=== PATIENT | male | born 1960 | race Caucasian/White ===

== ENCOUNTER 2023-07-03 16:36 | Inpatient (IN) | payer OTHER, SELFPAY ==
[2023-07-03 17:05] VITALS: BP 116/90; PULSE 88; RESP 18; TEMP 36.2; O2SAT 94
[2023-07-03 17:39] VITALS: BMI 28.0
[2023-07-03] MEDS: CILASTATIN IV ×2 (18:44→23:46)
[2023-07-03] MEDS: IMIPENEM IV ×2 (18:44→23:46)
[2023-07-03] MEDS: NORMAL SALINE 0.9% IV ×2 (18:44→23:46)
--- NOTE | 2023-07-03 19:44 | PCM.RX.CS ---
Consult Antibiotic Management Pharmacy has been consulted to manage selected antibiotic: Other (Amikacin) Type of Intervention Type of Consult: New start Prior Doses of Antibiotics Prior Doses of Antibiotics Received/Current Regimen: Patient was on 600mg ivpb q12h at another facility. Goal Trough Goal Trough: Other (trough <8) Pharmacy Plan for Drug Dosing Pharmacy Plan for Drug Dosing: Will continue dose of 600mg iv q12h from other facility. Peak and trough due 3.6.24 per transfer orders. Pharmacy Service will continue to monitor and adjust dosing as required. Follow-Up Labs Follow-Up Labs: Trough: Other (amikacin peak/trough 3.6.24)
[2023-07-03 20:00] VITALS: PULSE 76; RESP 16; O2SAT 94
[2023-07-03] MEDS: DEXTROSE 5% IV ×2 (20:06→23:45)
[2023-07-03] MEDS: WATER IV ×2 (20:06→23:45)
[2023-07-03] MEDS: TMP IV (20:06)
[2023-07-03] MEDS: SMZ IV (20:06)
[2023-07-03] MEDS: MELATONIN 3 MG TABLET PO (20:10)
[2023-07-03] MEDS: levETIRAcetam 500 MG Tablet PO (20:10)
[2023-07-03] MEDS: Atorvastatin Calcium 10 MG Tablet PO (20:10)
--- NOTE | 2023-07-03 22:49 | PCM.HP.STD ---
HPI - General General Date of Admission: 07/03/23 Date of Service: 07/06/23 Chief Complaint: Here for rehabilitation, IV ATB's. HPI Narrative RAFFY MORALES, is a 63 Male who presents with followin05/31/2023 Admit to [facility] with right frontal lobe abscess. 06/04/2023 Frontal lobe abscess removed. Source of infection unknown. ID recommended care home IV ATB's. 06/12/2023 Admit to [facility] Acute Rehab Unit. PT/OT/ST/IV ATB's. 06/29/2023 Admit to [facility]. PT/OT/ST/IV ATB's. 07/03/2023 Admit to TCU with debility, here for rehabilitation, IV ATB's. [facility] Medical History (Updated 07/03/23 @ 22:[address] Jose De Jesus Donnelly MD) Brain abscess Cirrhosis History of intracranial abscess Hypertension Non-smoker Sleep apnea Home Medications acetaminophen 325 mg tablet 650 mg PO Q6H PRN pain 07/03/23 [History Last Taken Unknown] amikacin 500 mg/2 mL injection solution 600 mg IV Q12H infection 07/03/23 [History Last Taken 07/03/23] atorvastatin 10 mg tablet 10 mg PO QHS hyperlipidemia 07/03/23 [History Last Taken 07/02/23] imipenem-cilastatin 500 mg intravenous solution See Rx Instructions IV 4X/DAY infection 07/03/23 [History Last Taken 07/03/23] levetiracetam 500 mg tablet (Keppra) 500 mg PO BID anticonvulsant 07/03/23 [History Last Taken 07/03/23] lisinopril 10 mg-hydrochlorothiazide 12.5 mg tablet 1 tab PO DAILY hypertension 07/03/23 [History Last Taken 07/03/23] melatonin 3 mg tablet 3 mg PO QHS sleep 07/03/23 [History Last Taken 07/02/23] sennosides 8.6 mg tablet 17.2 mg PO DAILY PRN constipation 07/03/23 [History Last Taken Unknown] sulfamethoxazole 400 mg-trimethoprim 80 mg/5 mL intravenous solution See Rx Instructions IV TID infection 07/03/23 [History Last Taken 07/03/23] Allergy/AdvReac Type Severity Reaction Status Date / Time sulfamethoxazole Allergy Unknown unknown Verified 07/03/23 17:30 [From Sulfamethoxazole-Trimethoprim] trimethoprim Allergy Unknown unknown Verified 07/03/23 17:30 [From Sulfamethoxazole-Trimethoprim] Surgical History (Updated 07/03/23 @ 18:02 by Adry Sin) History of tonsillectomy Social History (Updated 07/03/23 @ 22:[address] Jose De Jesus Donnelly MD) household members: spouse Smoking Status: Never smoker alcohol intake: never substance use type: does not use Vital Signs Vital Signs Vital Signs: 07/03/23 17:05 07/03/23 20:00 Temperature 97.2 F L Temperature Source Temporal Pulse Rate 88 76 Pulse Rhythm Regular Respiratory Rate 18 16 Respiratory Effort Normal Non-Labored Respiratory Depth Normal Respiratory Pattern Normal Blood Pressure 116/90 H Blood Pressure Mean 98 Blood Pressure Source Monitor Blood Pressure Position Sitting Blood Pressure Location Left Arm Pulse Ox 94 94 Oxygen Delivery Method Room Air Room Air Weight Weight: 93.621 kg Body Mass Index (BMI) 28.0 Physical Exam Const alert General Appearance: cooperative HEENT normocephalic HEENT Narrative: Lateral incision crown of head clean, dry, intact. Eyes PERRL and EOMs intact bilaterally Neck supple, no JVD and no carotid bruits Resp normal respiratory effort, normal air movement and clear to auscultation bilaterally Cardio regular rate and regular rhythm GI normal to inspection, nondistended, normoactive bowel sounds, non-tender and non-distended Extremity normal capillary refill Extremity Narrative: RUE PICC line. General Extremity: Negative for edema Skin no rashes or lesions noted General Skin Exam: no breakdown Psych affect normal Appearance: appropriate Results Lab / Micro Data 07/06/23 05:30 07/06/23 05:30 Assessment & Plan Assessment/Plan (1) Debility: (2) Brain abscess: (3) Hyperlipidemia: (4) Hypertension: PLAN: Plan 63 year old male with below past medical history hospitalized for brain abscess, s/p removal 06/04/2023, admitted to TCU with debility, here for rehabilitation, strengthening, prior to discharge home with . Debility - PT/OT. Pain - Tylenol 1000mg q6 prn pain (1-10). Bowel - senna/colace 1 tablet bid prn, Magnesium citrate 300ml daily prn. Adult immunization - Administer pneumonia vaccine, covid vaccine, flu vaccine as appropriate.. DVT prophylaxis - Moving well, not necessary. Brain abscess s/p removal - Amikacin 600mg iv q12, Primaxin 500mg iv q6, Bactrim 320mg iv 3x/day, Consult Dr. Tomlin for expert care. Hyperlipidemia - Atorvastatin 10mg qhs. Hypertension - Lisinopril 10mg daily, HCTZ 12.5mg daily. Seizure prophylaxis - Keppra 500mg bid. Insomnia - Melatonin 3mg qhs.
[2023-07-03] MEDS: AMIKACIN SULFATE IV (23:45)
[2023-07-04] MEDS: SMZ IV ×3 (02:07→17:44)
[2023-07-04] MEDS: WATER IV ×4 (02:07→17:44)
[2023-07-04] MEDS: DEXTROSE 5% IV ×4 (02:07→17:44)
[2023-07-04] MEDS: TMP IV ×3 (02:07→17:44)
[2023-07-04] MEDS: NORMAL SALINE 0.9% IV ×3 (06:23→19:24)
[2023-07-04] MEDS: IMIPENEM IV ×3 (06:23→19:24)
[2023-07-04] MEDS: CILASTATIN IV ×3 (06:23→19:24)
[2023-07-04 06:51] LABS: Absolute Lymphocyte Count 1.81 X10^3/uL (0.83-4.51); Absolute Neutrophil Count 1.6 X10^3/uL (2.0-7.7); Basophil% 2.2 % (0-1); Eosinophil# 0.27 X10^3/uL; Eosinophils% 5.8 % (0-5); Hematocrit 46.5 % (40-54); Lymphocyte # 1.81 X10^3/ul (0.83-4.51); Lymphocyte % 38.9 % (19-41); Mean Corp Hgb Conc 32.3 g/dL (32-36); Mean Corpuscular Hgb 28.1 pg (27.0-32.0); Mean Corpuscular Volume 87.1 fL (80-94); Mean Platelet Vol. 9.4 fl (6.2-12.0); Monocyte# 0.89 X10^3/uL; Monocyte% 19.1 % (0-10); NRBC Flagged by Analyzer 0 % (0-5); Neutrophil # 1.57 X10^3/uL (2.7-7.7); Neutrophil % 33.8 % (47-70); Platelet Count 251 K/mm3 (150-450); RBC Distribution Width CV 14.3 % (11.6-14.6); RBC Distribution Width SD 45.5 fl (35.1-43.9); Red Blood Count 5.34 M/mm3 (4.6-6.2); White Blood Count 4.7 K/mm3 (4.4-11.0)
[2023-07-04 07:10] LABS: Anion Gap 2 (5-15); BUN 7 mg/dL (7-18); BUN/Creat Ratio 7.4 RATIO (10-20); Chloride 103 mmol/L (98-107); Creatinine, Serum 0.94 mg/dL (0.70-1.30); EST Glomerular Filtration Rate 85 mL/min (>60); Est Glom Filt Rate - Afr Amer 103 mL/min (>60); Estimated Creatinine Clearance 94.34 ml/min; Glucose 82 mg/dL (74-106); Sodium Level 134 mmol/L (136-145)
[2023-07-04] MEDS: hydroCHLOROthiazide 12.5mg 12.5 MG PO (07:46)
[2023-07-04] MEDS: Lisinopril 10 MG Tablet PO (07:47)
[2023-07-04] MEDS: levETIRAcetam 500 MG Tablet PO ×2 (07:47→20:22)
[2023-07-04] MEDS: Enoxaparin 40 MG/0.4 ML Syringe SC (08:01)
[2023-07-04] MEDS: Tuberculin,Purif.prot.deriv. 50 TU/ML Vial 0.1 ML ID (09:30)
[2023-07-04] MEDS: 0.9 % NaCl (Sterile) Posiflush 10 mL IV (11:24)
[2023-07-04] MEDS: AMIKACIN SULFATE IV (12:07)
[2023-07-04] MEDS: 0.9% Saline Lock 10 ML Syringe IV (12:08)
[2023-07-04 14:52] VITALS: BP 110/81; PULSE 85; RESP 18; TEMP 36.6; O2SAT 93
--- NOTE | 2023-07-04 17:10 | NURSING ---
This nurse notified pharmacy ATB due at 1700. Pharmacy has not sent medication up yet next doses late due to this.
[2023-07-04] MEDS: MELATONIN 3 MG TABLET PO (20:22)
[2023-07-04] MEDS: Atorvastatin Calcium 10 MG Tablet PO (20:22)
[2023-07-05] MEDS: CILASTATIN IV ×4 (00:08→18:45)
[2023-07-05] MEDS: NORMAL SALINE 0.9% IV ×4 (00:08→18:45)
[2023-07-05] MEDS: IMIPENEM IV ×4 (00:08→18:45)
[2023-07-05] MEDS: 0.9% Normal Saline (250mL Bag) 250 ML 15 ML IV ×3 (00:09→23:24)
[2023-07-05] MEDS: WATER IV ×6 (00:13→23:28)
[2023-07-05] MEDS: AMIKACIN SULFATE IV ×3 (00:13→23:28)
[2023-07-05] MEDS: DEXTROSE 5% IV ×6 (00:13→23:28)
[2023-07-05] MEDS: SMZ IV ×3 (01:33→16:59)
[2023-07-05] MEDS: TMP IV ×3 (01:33→16:59)
[2023-07-05] MEDS: 0.9 % NaCl (Sterile) Posiflush 10 mL IV ×5 (01:40→23:24)
[2023-07-05] MEDS: Enoxaparin 40 MG/0.4 ML Syringe SC (06:07)
[2023-07-05 09:18] VITALS: BP 121/20; PULSE 78; RESP 16; TEMP 36.4; O2SAT 92
[2023-07-05] MEDS: Lisinopril 10 MG Tablet PO (09:22)
[2023-07-05] MEDS: hydroCHLOROthiazide 12.5mg 12.5 MG PO (09:22)
[2023-07-05] MEDS: 0.9% Saline Lock 10 ML Syringe IV (09:22)
[2023-07-05] MEDS: levETIRAcetam 500 MG Tablet PO ×2 (09:22→20:59)
[2023-07-05] MEDS: Atorvastatin Calcium 10 MG Tablet PO (21:00)
[2023-07-05] MEDS: MELATONIN 3 MG TABLET PO (21:00)
--- NOTE | 2023-07-05 23:45 | NURSING ---
Dressing and statlock change completed using sterile technique to [facility] single lumen PICC. End cap changed prior to connecting to first dose of hs atb. Skin under old tegaderm dressing is red and irritated. pt denies any discomfort to the affected area. Skin prep applied after site cleansed w/ chloraprep. Pt tolerated dressing change well. Staff to continue to monitor.
[2023-07-06] MEDS: NORMAL SALINE 0.9% IV ×3 (01:05→13:30)
[2023-07-06] MEDS: IMIPENEM IV ×3 (01:05→13:30)
[2023-07-06] MEDS: CILASTATIN IV ×3 (01:05→13:30)
[2023-07-06] MEDS: DEXTROSE 5% IV ×4 (01:58→17:17)
[2023-07-06] MEDS: WATER IV ×4 (01:58→17:17)
[2023-07-06] MEDS: TMP IV ×3 (01:58→17:17)
[2023-07-06] MEDS: SMZ IV ×3 (01:58→17:17)
[2023-07-06] MEDS: 0.9% Saline Lock 10 ML Syringe IV ×2 (01:59→05:29)
[2023-07-06] MEDS: 0.9% Normal Saline (250mL Bag) 250 ML 15 ML IV ×2 (01:59→05:30)
[2023-07-06 06:28] LABS: Absolute Lymphocyte Count 2.37 X10^3/uL (0.83-4.51); Absolute Neutrophil Count 1.8 X10^3/uL (2.0-7.7); Basophil% 1.7 % (0-1); Eosinophil# 0.24 X10^3/uL; Eosinophils% 4.2 % (0-5); Hematocrit 45.7 % (40-54); Hemoglobin 14.8 g/dL (13.0-16.5); Lymphocyte # 2.37 X10^3/ul (0.83-4.51); Lymphocyte % 41.3 % (19-41); Mean Corp Hgb Conc 32.4 g/dL (32-36); Mean Corpuscular Volume 86.6 fL (80-94); Mean Platelet Vol. 9.5 fl (6.2-12.0); Monocyte# 1.19 X10^3/uL; Monocyte% 20.7 % (0-10); NRBC Flagged by Analyzer 0 % (0-5); Neutrophil # 1.82 X10^3/uL (2.7-7.7); Neutrophil % 31.8 % (47-70); Platelet Count 265 K/mm3 (150-450); RBC Distribution Width CV 14.1 % (11.6-14.6); RBC Distribution Width SD 44.8 fl (35.1-43.9); Red Blood Count 5.28 M/mm3 (4.6-6.2); White Blood Count 5.7 K/mm3 (4.4-11.0)
[2023-07-06 06:43] LABS: ALB/GLOB Ratio 0.8 RATIO (0.9-2.4); AST(SGOT) 50 U/L (15-37); Alanine Aminotransfer ALT/SGPT 103 U/L (16-61); Albumin, Serum 2.9 g/dL (3.2-5.0); Alkaline Phosphatase 92 U/L (45-117); Anion Gap 3 (5-15); BUN 7 mg/dL (7-18); BUN/Creat Ratio 6.6 RATIO (10-20); CRP < 2.90 mg/L (0.0-3.0); Calcium,Total 8.9 mg/dL (8.5-10.1); Chloride 102 mmol/L (98-107); Creatinine, Serum 1.06 mg/dL (0.70-1.30); EST Glomerular Filtration Rate 75 mL/min (>60); Est Glom Filt Rate - Afr Amer 90 mL/min (>60); Estimated Creatinine Clearance 83.66 ml/min; Globulin 3.5 g/dL (2.2-4.2); Glucose 79 mg/dL (74-106); Potassium 4.2 mmol/L (3.5-5.1); Protein, Total 6.4 g/dL (6.4-8.2); Sodium Level 134 mmol/L (136-145)
[2023-07-06 08:24] LABS: Erythrocyte Sedimentation Rate 13 mm/hr (0-20)
--- NOTE | 2023-07-06 08:27 | NURSING ---
Labs faxed to Dr. Jasso.
[2023-07-06] MEDS: 0.9 % NaCl (Sterile) Posiflush 10 mL IV ×2 (10:04→17:17)
[2023-07-06] MEDS: levETIRAcetam 500 MG Tablet PO ×2 (10:08→20:27)
[2023-07-06] MEDS: Lisinopril 10 MG Tablet PO (10:08)
[2023-07-06] MEDS: hydroCHLOROthiazide 12.5mg 12.5 MG PO (10:08)
--- NOTE | 2023-07-06 10:47 | NURSING ---
Offered Covid vaccine, VIS provided. Patient refuses at this time.
[2023-07-06] MEDS: AMIKACIN SULFATE IV (11:52)
--- NOTE | 2023-07-06 12:26 | MDS.RN ---
Contacted registration and updated resident contacts per resident request.
--- NOTE | 2023-07-06 12:31 | NURSING ---
Interactive Multimedia Designer Note; Activity Asset: Cristiane Ortiz is independent in his choice of daily activities. He will watch tv, read us his smartphone and visit with family and friends. Angel did say he is fine with the geophysical data technician and therapy dog visits. He also enjoys just sitting outside. He was educated on sighting out and staying on the property when going out for walks w/family. Staff will remind him of weekly activities and respect his right to say no.
[2023-07-06 15:34] VITALS: BP 121/81; PULSE 79; RESP 16; TEMP 36.9; O2SAT 92
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
[2023-07-06] MEDS: MELATONIN 3 MG TABLET PO (20:28)
[2023-07-06] MEDS: Atorvastatin Calcium 10 MG Tablet PO (20:28)
[2023-07-06 20:53] VITALS: PULSE 90; RESP 16; O2SAT 94
[2023-07-06] MEDS: Ceftriaxone 2 GM in 0.9% Normal Saline (50mL MB+) 50 ML IV (22:18)
[2023-07-07] MEDS: DEXTROSE 5% IV ×3 (01:36→17:37)
[2023-07-07] MEDS: SMZ IV ×3 (01:36→17:37)
[2023-07-07] MEDS: TMP IV ×3 (01:36→17:37)
[2023-07-07] MEDS: WATER IV ×3 (01:36→17:37)
[2023-07-07 09:00] VITALS: BP 116/82; PULSE 77; RESP 14; TEMP 36.9; O2SAT 95
[2023-07-07] MEDS: hydroCHLOROthiazide 12.5mg 12.5 MG PO (10:23)
[2023-07-07] MEDS: Lisinopril 10 MG Tablet PO (10:24)
[2023-07-07] MEDS: levETIRAcetam 500 MG Tablet PO ×2 (10:24→22:15)
[2023-07-07] MEDS: Ceftriaxone 2 GM in 0.9% Normal Saline (50mL MB+) 50 ML IV ×2 (12:01→22:27)
[2023-07-07 12:36] VITALS: BMI 27.9
[2023-07-07 16:00] VITALS: BP 112/78; PULSE 81; RESP 16; TEMP 36.7; O2SAT 92
--- NOTE | 2023-07-07 16:13 | CASEMGMT ---
Social Work Met with patient to complete initial assessment. Introduced self and role. Verified/updated contacts. Discussed code status and pt wishes to be full code. Nursing notified. SW requested pt have dtr provide copies of advanced directives to place on file. SW explained extensively the pt's insurance coverage: max. 90 day stay, admitted on day 5, once deductible is met, SNF coverage is 100%. Pt is aware deductible may not have been met by time of TCU admit and will have OOP cost. Pt is on multiple IV ATB. Once stop date is known, DC date can be set accordingly. SW will continue to follow for DC planning. KAREEN ReidW
[2023-07-07 20:18] VITALS: O2SAT 97
[2023-07-07] MEDS: MELATONIN 3 MG TABLET PO (22:15)
[2023-07-07] MEDS: Atorvastatin Calcium 10 MG Tablet PO (22:15)
[2023-07-08] MEDS: TMP IV ×3 (00:10→17:54)
[2023-07-08] MEDS: 0.9% Normal Saline (250mL Bag) 250 ML 15 ML IV (00:10)
[2023-07-08] MEDS: 0.9% Saline Lock 10 ML Syringe IV (00:10)
[2023-07-08] MEDS: SMZ IV ×3 (00:10→17:54)
[2023-07-08] MEDS: DEXTROSE 5% IV ×4 (00:10→20:05)
[2023-07-08] MEDS: WATER IV ×4 (00:10→20:05)
[2023-07-08 07:56] VITALS: BP 117/79; PULSE 75; RESP 16; TEMP 36.7; O2SAT 90
[2023-07-08] MEDS: hydroCHLOROthiazide 12.5mg 12.5 MG PO (09:54)
[2023-07-08] MEDS: Lisinopril 10 MG Tablet PO (09:55)
[2023-07-08] MEDS: levETIRAcetam 500 MG Tablet PO ×2 (09:55→20:06)
--- NOTE | 2023-07-08 10:10 | CASEMGMT ---
Social Work IDT met with patient and dtr for care plan meeting. Discussed patient's progress in PT/OT/SN. OT will DC at the end of this week. PT will decrease to 3x/wk then DC. Pt encouraged to stay active during stay. SW educated on [employer] insurance, coverage until deductible is met, and max 90 day staff; pt admitted on day 5. Dtr is aware and has no questions. Educated to NRD 07/09 and continued stay reviews. Once stop date is known, that will be shared with pt/dtr. Dtr also provided advanced directives. SW made copies and placed in chart. SW will continue to follow for DC planning. Yulia Kyle, CURTAINS AND DRAPERIES SALESPERSON ELECTRICAL & INSTRUMENTATION SUPERVISOR
[2023-07-08] MEDS: Ceftriaxone 2 GM in 0.9% Normal Saline (50mL MB+) 50 ML IV ×2 (12:01→20:06)
[2023-07-08 16:00] VITALS: BP 105/73; PULSE 103; RESP 18; TEMP 36.6; O2SAT 94
[2023-07-08] MEDS: AMIKACIN SULFATE IV (20:05)
[2023-07-08] MEDS: Atorvastatin Calcium 10 MG Tablet PO (20:07)
[2023-07-08] MEDS: MELATONIN 3 MG TABLET PO (20:07)
[2023-07-09] MEDS: SMZ IV ×3 (00:25→17:29)
[2023-07-09] MEDS: WATER IV ×5 (00:25→20:09)
[2023-07-09] MEDS: TMP IV ×3 (00:25→17:29)
[2023-07-09] MEDS: DEXTROSE 5% IV ×5 (00:25→20:09)
[2023-07-09] MEDS: AMIKACIN SULFATE IV ×2 (06:12→20:09)
[2023-07-09] MEDS: Ceftriaxone 2 GM in 0.9% Normal Saline (50mL MB+) 50 ML IV ×2 (06:12→20:09)
[2023-07-09] MEDS: 0.9 % NaCl (Sterile) Posiflush 10 mL IV (09:13)
[2023-07-09] MEDS: Lisinopril 10 MG Tablet PO (09:18)
[2023-07-09] MEDS: hydroCHLOROthiazide 12.5mg 12.5 MG PO (09:18)
[2023-07-09] MEDS: levETIRAcetam 500 MG Tablet PO ×2 (09:18→20:13)
[2023-07-09 10:01] VITALS: BP 123/83; PULSE 81; RESP 16; TEMP 36.5; O2SAT 94
--- NOTE | 2023-07-09 13:01 | CASEMGMT ---
Social Work BIMS () and PHQ-2 () completed for MDS assessment. Yulia Kyle MSW PIPE COVERER HELPER
--- NOTE | 2023-07-09 13:15 | PCM.PN.ID ---
ID ID: Route of nutrition/ use of supplements: [] Nutritional Intake: [] IV Site: [] Malone Catheter: [] Assessment & Plan Assessment/Plan (1) Nocardia infection: PLAN: Reviewed susceptibility results. Nocardia is S to augmentin, ceftriaxone, amikacin, tobra, minocycline, bactrim, and linezolid. Narrowed abx to ceftriaxone 2gm q12h and IV bactrim. Plan is for 6 weeks total of IV abx then long duration of po treatment. He has completed approximately 2 weeks of iv abx at this point. Spoke with Dr. Jasso, he requests one more week iv amikacin, restarted 07/08/23. Will follow, d/w pharmacy (2) Brain abscess:
--- NOTE | 2023-07-09 14:11 | MDS.RN ---
Pain interview for MDS completed.
--- NOTE | 2023-07-09 15:14 | PHA.CONS_ITS ---
TCU RX Drug Regimen Review Subjective/Objective Subjective/Objective: Subjective: 63 YOM admitted to TCU s/p hospitalization from an outside facility for a right frontal lobe abscess requiring intervention to remove. Admitted to TCU on 07/03/23 for IV antibiotics and rehabilitation prior to discharge. Objective: Allergies sulfamethoxazole [From Sulfamethoxazole-Trimethoprim] Allergy (Unknown, Verified 07/03/23 17:30) unknown listed as allergy however patient was taking at prior facility with no side effects trimethoprim [From Sulfamethoxazole-Trimethoprim] Allergy (Unknown, Verified 07/03/23 17:30) unknown listed as allergy however patient was taking at prior facility with no side effects Current Medications Generic Name Dose Route Start Last Admin Trade Name Freq PRN Reason Stop Dose Admin Acetaminophen 1,000 mg 07/03/23 23:03 Acetaminophen 500 Mg Tablet PO Q6H PRN PRN pain 1-10 Atorvastatin Calcium 10 mg 07/03/23 22:00 07/08/23 20:07 Atorvastatin Calcium 10 Mg Tablet PO 10 mg QHS ASHLEY Administration Heparin Sodium (Beef Lung) 50 units 07/03/23 17:42 Heparin Pf Lock 10 Units/Ml 50 Units/5 Ml Syringe IV UD PRN PICC Line Heparin Flush Hydrochlorothiazide 12.5 mg 07/04/23 10:00 07/09/23 09:18 Hydrochlorothiazide 12.5mg PO 12.5 mg DAILY ASHLEY Administration Trimethoprim/Sulfamethoxazole 520 mls @ 346.667 mls/hr 07/03/23 17:00 07/09/23 12:40 320 mg/ Dextrose IV Infused 0100,0900,1700 ASHLEY Infusion Sodium Chloride 250 mls @ 15 mls/hr 07/03/23 18:54 07/08/23 20:17 IV Infused .[id number] PRN Infusion Additional IVPB Infusion Sodium Chloride 250 mls @ 15 mls/hr 07/03/23 18:54 07/06/23 05:29 IV Infused .[id number] PRN Infusion Saline Flush Amikacin Sulfate 600 mg/ 252.4 mls @ 252.4 mls/hr 07/08/23 19:00 07/09/23 07:33 Dextrose IV 07/15/23 07:59 Infused Q12H ASHLEY Infusion Ceftriaxone Sodium 2 gm/ 50 mls @ 100 mls/hr 07/08/23 19:00 07/09/23 06:55 Sodium Chloride IV Infused Q12H ASHLEY Infusion Levetiracetam 500 mg 07/03/23 22:00 07/09/23 09:18 Levetiracetam 500 Mg Tablet PO 500 mg BID ASHLEY Administration Lisinopril 10 mg 07/04/23 10:00 07/09/23 09:18 Lisinopril 10 Mg Tablet PO 10 mg DAILY ASHLEY Administration Magnesium Citrate 300 ml 07/03/23 23:02 Magnesium Citrate 300 Ml PO DAILY PRN Constipation Melatonin 3 mg 07/03/23 22:00 07/08/23 20:07 Melatonin 3 Mg Tablet PO 3 mg QHS ASHLEY Administration Pharmacy Profile Note 1 each 07/08/23 08:52 Pharmacy Consult NOTE X1 PRN NOT SPECIFIED Senna/Docusate Sodium 1 tablet 07/03/23 23:02 Senna/Docusate Sodium 1 Tablet PO BID PRN PRN Constipation Sodium Chloride 10 - 40 ml 07/03/23 17:42 07/09/23 09:13 0.9 % Nacl (Sterile) Posiflush 10 Ml IV 20 ml UD PRN Administration Port access or dressing change Sodium Chloride 10 - 40 ml 07/03/23 17:42 07/08/23 00:10 0.9% Saline Lock 10 Ml Syringe IV 20 ml UD PRN Administration Open End PICC Flush Tuberculin PPD 0.1 ml 07/11/23 10:00 Tuberculin,Purif.Prot.Deriv. 50 Tu/Ml Vial ID 07/11/23 10:01 X1 ONE Problem List (Updated 07/06/23 @ 16:[address] Perez Tomlin MD) Nocardia infection (Acute) Hyperlipidemia (Acute) Hypertension (Chronic) Brain abscess (Acute) Debility (Acute) Vital Signs Temp Pulse Resp BP Pulse Ox O2 Del Method 97.7 F L 81 16 123/83 H 94 Room Air 07/09/23 10:01 07/09/23 10:01 07/09/23 10:01 07/09/23 10:01 07/09/23 10:01 07/09/23 10:01 Oxygen Delivery Method Room Air Weight: 93.712 kg Body Mass Index (BMI) 27.9 Sodium 134 mmol/L (136-145) L 07/06/23 05:30 Potassium 4.2 mmol/L (3.5-5.1) 07/06/23 05:30 Chloride 102 mmol/L (98-107) 07/06/23 05:30 Carbon Dioxide 29.0 mmol/L (21.0-32.0) 07/06/23 05:30 Anion Gap 3 (5-15) L 07/06/23 05:30 BUN 7 mg/dL (7-18) 07/06/23 05:30 Creatinine 1.06 mg/dL (0.70-1.30) 07/06/23 05:30 Est GFR (MDRD) Af Amer 90 mL/min (>60) 07/06/23 05:30 Est GFR (MDRD) Non-Af 75 mL/min (>60) 07/06/23 05:30 BUN/Creatinine Ratio 6.6 RATIO (10-20) L 07/06/23 05:30 Glucose 79 mg/dL (74-106) 07/06/23 05:30 Assessment/Plan: 1. Pain: Tylenol 1000mg PO Q6h PRN Pain 1-10. Please continue to monitor for S/S increased/decreased pain, PRN medication usage, medication effectiveness. -To date, the patient has not required any PRN medication doses since admission. Pain appears managed at this time. 2. Brain abscess s/p removal: Rocephin 2g IV Q12h, Amikacin 600mg IV Q12h (thru 07/15/23), Bactrim 320mg IV 3x/day. Please continue to monitor renal function (CrCl 83mL/min on 07/05), Amikacin levels if renal function changes (note: was stable on current regimen, peak/trough completed on 07/05 was WNL), culture data as clinically indicated, S/S recurrent infection. -Note: Patient is being seen by ID on admission. Cx from outside facility growing Nocardia which is sensitive to all agents pt currently on. 3. HTN/HLD: Lipitor 10mg PO QHS, HCTZ 12.5mg PO Daily, Lisinopril 10mg PO Daily. Please continue to monitor BP (last 123/83), renal function, potassium level (last 4.2 on 07/05), lipid panel annually or sooner if clinically indicated (no lipid panel on file). 4. Seizure Prophylaxis: Keppra 500mg PO BID. Please continue to monitor for s eizure activity, drowsiness, vomiting, hallucinations. 5. Melatonin: 3mg PO QHS. Please continue to monitor for medication effectiveness, oversedation. If medication appears ineffective, please consider administering medication at least 2 hours prior to desired bedtime. 6. Bowel: Senna/Docusate 1 tab PO BID PRN, Magnesium Citrate 300mL PO Daily PRN. Please continue to monitor for increased/decreased constipation and/or diarrhea. -The patient has not had a documented BM since admission on 07/02. Consider administering PRN medications or schedule medications to help facilitate BM, thank you. Assessment/Plan for indications treated with psychotropic medications: - The patient is not being maintained on any psychotropic medications at time of medication list review. Medical chart and medication regimen reviewed. The following medication irregularities or issues were identified: 1. Bowel: Senna/Docusate 1 tab PO BID PRN, Magnesium Citrate 300mL PO Daily PRN. Patient has not had a BM since admission on 07/02 (6 days ago). Please consider scheduling senna/docusate and potentially Miralax to help facilitate a BM, thank you. 2. HLD: Lipitor 10mg PO QHS. The patient does not have a lipid panel per EMR review. Please consider obtaining a lipid panel if clinically indicated, thank you. Date Date of Note:: 07/09/23
[2023-07-09] MEDS: 0.9% Saline Lock 10 ML Syringe IV ×2 (19:56→21:14)
[2023-07-09] MEDS: Senna/Docusate Sodium 1 Tablet PO (20:12)
[2023-07-09] MEDS: MELATONIN 3 MG TABLET PO (20:13)
[2023-07-09] MEDS: Atorvastatin Calcium 10 MG Tablet PO (20:13)
[2023-07-10] MEDS: 0.9% Saline Lock 10 ML Syringe IV ×7 (01:04→21:00)
[2023-07-10] MEDS: TMP IV ×3 (01:04→17:18)
[2023-07-10] MEDS: SMZ IV ×3 (01:04→17:18)
[2023-07-10] MEDS: DEXTROSE 5% IV ×5 (01:04→19:44)
[2023-07-10] MEDS: WATER IV ×5 (01:04→19:44)
[2023-07-10 06:47] LABS: Anion Gap 7 (5-15); BUN 8 mg/dL (7-18); BUN/Creat Ratio 7.2 RATIO (10-20); Calcium,Total 8.5 mg/dL (8.5-10.1); Chloride 98 mmol/L (98-107); Creatinine, Serum 1.11 mg/dL (0.70-1.30); EST Glomerular Filtration Rate 71 mL/min (>60); Est Glom Filt Rate - Afr Amer 86 mL/min (>60); Estimated Creatinine Clearance 79.92 ml/min; Glucose 82 mg/dL (74-106); Potassium 3.8 mmol/L (3.5-5.1); Sodium Level 134 mmol/L (136-145)
[2023-07-10] MEDS: 0.9% Normal Saline (250mL Bag) 250 ML 15 ML IV ×2 (07:07)
[2023-07-10] MEDS: Ceftriaxone 2 GM in 0.9% Normal Saline (50mL MB+) 50 ML IV ×2 (07:08→19:45)
[2023-07-10] MEDS: AMIKACIN SULFATE IV ×2 (07:09→19:44)
--- NOTE | 2023-07-10 09:01 | NURSING ---
Farmworker Egg Producing Farm Note; MDS for 07/10/2023 Complete
[2023-07-10 09:09] VITALS: BP 110/70; PULSE 76; RESP 16; TEMP 36.6; O2SAT 95
[2023-07-10] MEDS: levETIRAcetam 500 MG Tablet PO ×2 (09:10→21:02)
[2023-07-10] MEDS: Lisinopril 10 MG Tablet PO (09:10)
[2023-07-10] MEDS: hydroCHLOROthiazide 12.5mg 12.5 MG PO (09:10)
[2023-07-10] MEDS: Senna/Docusate Sodium 1 Tablet PO (21:01)
[2023-07-10] MEDS: MELATONIN 3 MG TABLET PO (21:02)
[2023-07-10] MEDS: Atorvastatin Calcium 10 MG Tablet PO (21:02)
[2023-07-11] MEDS: SMZ IV ×3 (01:34→17:33)
[2023-07-11] MEDS: DEXTROSE 5% IV ×5 (01:34→20:06)
[2023-07-11] MEDS: TMP IV ×3 (01:34→17:33)
[2023-07-11] MEDS: 0.9% Saline Lock 10 ML Syringe IV ×3 (01:34→06:55)
[2023-07-11] MEDS: WATER IV ×5 (01:34→20:06)
[2023-07-11] MEDS: 0.9% Normal Saline (250mL Bag) 250 ML 15 ML IV ×3 (01:34→07:03)
[2023-07-11] MEDS: Ceftriaxone 2 GM in 0.9% Normal Saline (50mL MB+) 50 ML IV ×2 (07:03→20:05)
[2023-07-11] MEDS: AMIKACIN SULFATE IV ×2 (07:04→20:06)
[2023-07-11] MEDS: hydroCHLOROthiazide 12.5mg 12.5 MG PO (09:25)
[2023-07-11] MEDS: levETIRAcetam 500 MG Tablet PO ×2 (09:26→20:23)
[2023-07-11] MEDS: Lisinopril 10 MG Tablet PO (09:26)
[2023-07-11 09:31] VITALS: BP 131/82
[2023-07-11] MEDS: Tuberculin,Purif.prot.deriv. 50 TU/ML Vial 0.1 ML ID (11:47)
[2023-07-11 15:39] VITALS: BP 117/82; PULSE 80; RESP 14; TEMP 36.6; O2SAT 94
[2023-07-11] MEDS: Senna/Docusate Sodium 1 Tablet PO (20:22)
[2023-07-11] MEDS: Atorvastatin Calcium 10 MG Tablet PO (20:23)
[2023-07-11] MEDS: MELATONIN 3 MG TABLET PO (20:23)
[2023-07-12] MEDS: 0.9 % NaCl (Sterile) Posiflush 10 mL IV ×3 (01:25→18:02)
[2023-07-12] MEDS: WATER IV ×5 (01:26→19:56)
[2023-07-12] MEDS: TMP IV ×3 (01:26→18:00)
[2023-07-12] MEDS: DEXTROSE 5% IV ×5 (01:26→19:56)
[2023-07-12] MEDS: SMZ IV ×3 (01:26→18:00)
[2023-07-12] MEDS: 0.9% Normal Saline (250mL Bag) 250 ML 15 ML IV ×2 (06:48→09:28)
[2023-07-12] MEDS: AMIKACIN SULFATE IV ×2 (06:49→19:56)
[2023-07-12] MEDS: Ceftriaxone 2 GM in 0.9% Normal Saline (50mL MB+) 50 ML IV ×2 (06:49→19:56)
[2023-07-12] MEDS: Lisinopril 10 MG Tablet PO (09:27)
[2023-07-12] MEDS: hydroCHLOROthiazide 12.5mg 12.5 MG PO (09:27)
[2023-07-12] MEDS: levETIRAcetam 500 MG Tablet PO ×2 (09:27→20:10)
[2023-07-12 09:29] VITALS: BP 116/73; PULSE 74
[2023-07-12 15:47] VITALS: BP 117/76; PULSE 76; RESP 16; TEMP 36.7; O2SAT 91
[2023-07-12] MEDS: Atorvastatin Calcium 10 MG Tablet PO (20:10)
[2023-07-12] MEDS: MELATONIN 3 MG TABLET PO (20:10)
[2023-07-12] MEDS: Senna/Docusate Sodium 1 Tablet PO (20:13)
[2023-07-13] MEDS: TMP IV ×3 (01:02→16:59)
[2023-07-13] MEDS: 0.9 % NaCl (Sterile) Posiflush 10 mL IV ×2 (01:02→06:45)
[2023-07-13] MEDS: SMZ IV ×3 (01:02→16:59)
[2023-07-13] MEDS: DEXTROSE 5% IV ×5 (01:02→18:59)
[2023-07-13] MEDS: WATER IV ×5 (01:02→18:59)
[2023-07-13 05:54] LABS: Absolute Lymphocyte Count 2.43 X10^3/uL (0.83-4.51); Absolute Neutrophil Count 2.6 X10^3/uL (2.0-7.7); Basophil# 0.15 X10^3/uL; Basophil% 2.2 % (0-1); Eosinophil# 0.46 X10^3/uL; Eosinophils% 6.7 % (0-5); Hematocrit 45.3 % (40-54); Hemoglobin 14.8 g/dL (13.0-16.5); Lymphocyte # 2.43 X10^3/ul (0.83-4.51); Lymphocyte % 35.6 % (19-41); Mean Corp Hgb Conc 32.7 g/dL (32-36); Mean Corpuscular Hgb 28.2 pg (27.0-32.0); Mean Corpuscular Volume 86.5 fL (80-94); Mean Platelet Vol. 9.3 fl (6.2-12.0); Monocyte# 1.17 X10^3/uL; Monocyte% 17.1 % (0-10); NRBC Flagged by Analyzer 0 % (0-5); Neutrophil # 2.57 X10^3/uL (2.7-7.7); Neutrophil % 37.7 % (47-70); Platelet Count 252 K/mm3 (150-450); RBC Distribution Width CV 14.6 % (11.6-14.6); RBC Distribution Width SD 44.5 fl (35.1-43.9); Red Blood Count 5.24 M/mm3 (4.6-6.2); White Blood Count 6.8 K/mm3 (4.4-11.0)
[2023-07-13 06:11] LABS: Erythrocyte Sedimentation Rate 10 mm/hr (0-20)
[2023-07-13 06:28] LABS: ALB/GLOB Ratio 0.9 RATIO (0.9-2.4); AST(SGOT) 55 U/L (15-37); Alanine Aminotransfer ALT/SGPT 93 U/L (16-61); Albumin, Serum 3.1 g/dL (3.2-5.0); Alkaline Phosphatase 82 U/L (45-117); Anion Gap 7 (5-15); BUN 8 mg/dL (7-18); BUN/Creat Ratio 7.8 RATIO (10-20); CRP < 2.90 mg/L (0.0-3.0); Calcium,Total 8.6 mg/dL (8.5-10.1); Chloride 97 mmol/L (98-107); Creatinine, Serum 1.03 mg/dL (0.70-1.30); EST Glomerular Filtration Rate 77 mL/min (>60); Est Glom Filt Rate - Afr Amer 94 mL/min (>60); Estimated Creatinine Clearance 86.13 ml/min; Globulin 3.4 g/dL (2.2-4.2); Glucose 85 mg/dL (74-106); Potassium 4.4 mmol/L (3.5-5.1); Protein, Total 6.5 g/dL (6.4-8.2); Sodium Level 133 mmol/L (136-145)
[2023-07-13] MEDS: 0.9% Normal Saline (250mL Bag) 250 ML 15 ML IV ×2 (06:44→09:15)
[2023-07-13] MEDS: Ceftriaxone 2 GM in 0.9% Normal Saline (50mL MB+) 50 ML IV ×2 (06:46→18:59)
[2023-07-13] MEDS: AMIKACIN SULFATE IV ×2 (06:47→18:59)
--- NOTE | 2023-07-13 07:40 | NURSING ---
faxed labs to Mitchell Jasso per order this AM
[2023-07-13] MEDS: 0.9% Saline Lock 10 ML Syringe IV ×3 (09:12→18:59)
[2023-07-13] MEDS: hydroCHLOROthiazide 12.5mg 12.5 MG PO (09:20)
[2023-07-13] MEDS: Lisinopril 10 MG Tablet PO (09:20)
[2023-07-13] MEDS: levETIRAcetam 500 MG Tablet PO ×2 (09:20→21:41)
[2023-07-13 09:24] VITALS: BP 120/78; PULSE 77; RESP 17; TEMP 36.7; O2SAT 93
[2023-07-13 13:01] VITALS: PULSE 90; RESP 16; O2SAT 94
[2023-07-13] MEDS: Atorvastatin Calcium 10 MG Tablet PO (21:41)
[2023-07-13] MEDS: Senna/Docusate Sodium 1 Tablet PO (21:41)
[2023-07-13] MEDS: MELATONIN 3 MG TABLET PO (21:41)
[2023-07-14] MEDS: 0.9% Saline Lock 10 ML Syringe IV ×3 (00:16→19:40)
[2023-07-14] MEDS: 0.9% Normal Saline (250mL Bag) 250 ML 15 ML IV (00:17)
[2023-07-14] MEDS: DEXTROSE 5% IV ×5 (00:17→19:40)
[2023-07-14] MEDS: SMZ IV ×3 (00:17→17:11)
[2023-07-14] MEDS: WATER IV ×5 (00:17→19:40)
[2023-07-14] MEDS: TMP IV ×3 (00:17→17:11)
[2023-07-14] MEDS: Ceftriaxone 2 GM in 0.9% Normal Saline (50mL MB+) 50 ML IV ×2 (06:23→19:41)
[2023-07-14] MEDS: AMIKACIN SULFATE IV ×2 (06:24→19:40)
[2023-07-14] MEDS: 0.9% Normal Saline (250mL Bag) 250 ML 252.4 ML IV (06:24)
[2023-07-14] MEDS: 0.9% Normal Saline (250mL Bag) 250 ML 100 ML IV (06:24)
[2023-07-14 07:58] VITALS: BP 123/80; PULSE 70; RESP 20; TEMP 36.5; O2SAT 96
[2023-07-14 08:23] VITALS: BP 111/70; PULSE 82; RESP 24; TEMP 36.7; O2SAT 94
[2023-07-14] MEDS: 0.9 % NaCl (Sterile) Posiflush 10 mL IV (09:33)
[2023-07-14] MEDS: hydroCHLOROthiazide 12.5mg 12.5 MG PO (09:42)
[2023-07-14] MEDS: levETIRAcetam 500 MG Tablet PO ×2 (09:43→19:54)
[2023-07-14] MEDS: Lisinopril 10 MG Tablet PO (09:43)
[2023-07-14 11:40] VITALS: BMI 28.2
--- NOTE | 2023-07-14 16:19 | NURSING ---
pts daughter came to nurses station requesting to speak to the manager of supply chain. This nurse asked if I could assist them with any questions. Daughter and pt stated that meds are not being given on time. Reviewed medication administration times with daughter and pt. Medications were administered on time per [facility] [place]. Daughter then requested for 2200 meds to be moved to 1999. Will contact pharmacy requesting this changed.
[2023-07-14] MEDS: Atorvastatin Calcium 10 MG Tablet PO (19:53)
[2023-07-14] MEDS: MELATONIN 3 MG TABLET PO (19:54)
[2023-07-14] MEDS: Senna/Docusate Sodium 1 Tablet PO (19:54)
[2023-07-15] MEDS: SMZ IV ×3 (01:37→16:54)
[2023-07-15] MEDS: DEXTROSE 5% IV ×4 (01:37→16:54)
[2023-07-15] MEDS: TMP IV ×3 (01:37→16:54)
[2023-07-15] MEDS: WATER IV ×4 (01:37→16:54)
[2023-07-15] MEDS: Ceftriaxone 2 GM in 0.9% Normal Saline (50mL MB+) 50 ML IV ×2 (07:01→18:47)
[2023-07-15] MEDS: AMIKACIN SULFATE IV (07:02)
[2023-07-15 07:51] VITALS: BP 114/76; PULSE 66; RESP 18; TEMP 36.8; O2SAT 90
[2023-07-15] MEDS: levETIRAcetam 500 MG Tablet PO ×2 (09:35→19:48)
[2023-07-15] MEDS: Lisinopril 10 MG Tablet PO (09:37)
[2023-07-15] MEDS: hydroCHLOROthiazide 12.5mg 12.5 MG PO (09:37)
--- NOTE | 2023-07-15 11:45 | MDS.RN ---
Information for the mds was obtained from review of the clinical record, interview of resident, staff, and direct observation of resident's care.
[2023-07-15] MEDS: 0.9 % NaCl (Sterile) Posiflush 10 mL IV (16:55)
[2023-07-15] MEDS: 0.9% Saline Lock 10 ML Syringe IV (19:44)
[2023-07-15] MEDS: Senna/Docusate Sodium 1 Tablet PO (19:47)
[2023-07-15] MEDS: MELATONIN 3 MG TABLET PO (19:48)
[2023-07-15] MEDS: Atorvastatin Calcium 10 MG Tablet PO (19:48)
[2023-07-16] MEDS: 0.9% Saline Lock 10 ML Syringe IV ×5 (00:36→19:32)
[2023-07-16] MEDS: 0.9% Normal Saline (250mL Bag) 250 ML 15 ML IV (00:39)
[2023-07-16] MEDS: TMP IV ×3 (00:39→17:06)
[2023-07-16] MEDS: SMZ IV ×3 (00:39→17:06)
[2023-07-16] MEDS: WATER IV ×3 (00:39→17:06)
[2023-07-16] MEDS: DEXTROSE 5% IV ×3 (00:39→17:06)
[2023-07-16] MEDS: Ceftriaxone 2 GM in 0.9% Normal Saline (50mL MB+) 50 ML IV ×2 (06:48→19:36)
[2023-07-16 09:00] VITALS: BP 120/77; PULSE 85; RESP 16; TEMP 36.6; O2SAT 92
[2023-07-16] MEDS: Lisinopril 10 MG Tablet PO (09:02)
[2023-07-16] MEDS: levETIRAcetam 500 MG Tablet PO ×2 (09:02→20:37)
[2023-07-16] MEDS: hydroCHLOROthiazide 12.5mg 12.5 MG PO (09:02)
--- NOTE | 2023-07-16 10:22 | PN.ID_ITS ---
Physical Exam Narrative Feeling better, doing well with therapy. No fever, mild nausea. Const alert and no apparent distress Resp normal air movement and clear to auscultation bilaterally Cardio regular rate and regular rhythm GI soft to palpation, non-tender and non-distended Skin no rashes or lesions noted ID ID: Route of nutrition/ use of supplements: [] Nutritional Intake: [] IV Site: [] Malone Catheter: [] Assessment & Plan Assessment/Plan (1) Nocardia infection: PLAN: Reviewed susceptibility results. Nocardia is S to augmentin, ceftriaxone, amikacin, tobra, minocycline, bactrim, and linezolid. Narrowed abx to ceftriaxone 2gm q12h and IV bactrim. Completed 3 weeks amikacin. Plan is for 6 weeks total of IV abx then long duration of po treatment. Stop date of IV ce ftriaxone/bactrim will be 08/06/23. Brain MRI planned per the patient. Will follow (2) Brain abscess:
--- NOTE | 2023-07-16 15:32 | NURSING ---
dr urrutia put stop date on IV ATBs 08/06/23. DANCE PROFESSOR updated.
[2023-07-16 15:35] VITALS: PULSE 74; RESP 16; O2SAT 94
[2023-07-16] MEDS: 0.9% Normal Saline (250mL Bag) 250 ML 100 ML IV (19:35)
[2023-07-16] MEDS: MELATONIN 3 MG TABLET PO (20:37)
[2023-07-16] MEDS: Atorvastatin Calcium 10 MG Tablet PO (20:37)
[2023-07-16] MEDS: Senna/Docusate Sodium 1 Tablet PO (20:37)
[2023-07-17] MEDS: 0.9% Normal Saline (250mL Bag) 250 ML 15 ML IV (01:09)
[2023-07-17] MEDS: DEXTROSE 5% IV ×3 (01:09→17:18)
[2023-07-17] MEDS: 0.9% Saline Lock 10 ML Syringe IV ×4 (01:09→20:30)
[2023-07-17] MEDS: TMP IV ×3 (01:09→17:18)
[2023-07-17] MEDS: SMZ IV ×3 (01:09→17:18)
[2023-07-17] MEDS: WATER IV ×3 (01:09→17:18)
[2023-07-17] MEDS: Ceftriaxone 2 GM in 0.9% Normal Saline (50mL MB+) 50 ML IV ×2 (06:15→19:32)
[2023-07-17] MEDS: 0.9% Normal Saline (250mL Bag) 250 ML 100 ML IV (06:15)
[2023-07-17] MEDS: 0.9 % NaCl (Sterile) Posiflush 10 mL IV (09:30)
[2023-07-17] MEDS: hydroCHLOROthiazide 12.5mg 12.5 MG PO (09:33)
[2023-07-17] MEDS: levETIRAcetam 500 MG Tablet PO ×2 (09:33→19:32)
[2023-07-17] MEDS: Lisinopril 10 MG Tablet PO (09:33)
[2023-07-17 15:48] VITALS: BP 111/74; PULSE 83; RESP 16; TEMP 37; O2SAT 95
[2023-07-17] MEDS: Atorvastatin Calcium 10 MG Tablet PO (19:32)
[2023-07-17] MEDS: Senna/Docusate Sodium 1 Tablet PO (19:32)
[2023-07-17] MEDS: MELATONIN 3 MG TABLET PO (19:32)
[2023-07-18] MEDS: TMP IV ×3 (00:41→16:59)
[2023-07-18] MEDS: WATER IV ×3 (00:41→16:59)
[2023-07-18] MEDS: DEXTROSE 5% IV ×3 (00:41→16:59)
[2023-07-18] MEDS: 0.9% Saline Lock 10 ML Syringe IV (00:41)
[2023-07-18] MEDS: SMZ IV ×3 (00:41→16:59)
[2023-07-18] MEDS: Ceftriaxone 2 GM in 0.9% Normal Saline (50mL MB+) 50 ML IV ×2 (06:03→18:44)
[2023-07-18 08:10] VITALS: BP 125/87; PULSE 70; RESP 18; TEMP 36.4; O2SAT 95
[2023-07-18] MEDS: levETIRAcetam 500 MG Tablet PO ×2 (08:14→19:55)
[2023-07-18] MEDS: hydroCHLOROthiazide 12.5mg 12.5 MG PO (08:14)
[2023-07-18] MEDS: Lisinopril 10 MG Tablet PO (08:14)
[2023-07-18] MEDS: 0.9 % NaCl (Sterile) Posiflush 10 mL IV (09:17)
[2023-07-18 10:00] VITALS: O2SAT 95
[2023-07-18] MEDS: 0.9% Normal Saline (250mL Bag) 250 ML 15 ML IV (18:44)
[2023-07-18] MEDS: Atorvastatin Calcium 10 MG Tablet PO (19:55)
[2023-07-18] MEDS: MELATONIN 3 MG TABLET PO (19:55)
[2023-07-18] MEDS: Senna/Docusate Sodium 1 Tablet PO (19:55)
[2023-07-19] MEDS: DEXTROSE 5% IV ×3 (00:47→17:05)
[2023-07-19] MEDS: 0.9 % NaCl (Sterile) Posiflush 10 mL IV ×5 (00:47→18:52)
[2023-07-19] MEDS: SMZ IV ×3 (00:47→17:05)
[2023-07-19] MEDS: TMP IV ×3 (00:47→17:05)
[2023-07-19] MEDS: WATER IV ×3 (00:47→17:05)
[2023-07-19] MEDS: Ceftriaxone 2 GM in 0.9% Normal Saline (50mL MB+) 50 ML IV ×2 (06:27→18:52)
[2023-07-19] MEDS: 0.9% Saline Lock 10 ML Syringe IV ×2 (06:27→20:01)
[2023-07-19] MEDS: 0.9% Normal Saline (250mL Bag) 250 ML 15 ML IV ×2 (09:28→18:52)
[2023-07-19] MEDS: levETIRAcetam 500 MG Tablet PO ×2 (09:34→20:05)
[2023-07-19] MEDS: hydroCHLOROthiazide 12.5mg 12.5 MG PO (09:34)
[2023-07-19] MEDS: Lisinopril 10 MG Tablet PO (09:35)
[2023-07-19 09:43] VITALS: BP 118/79; PULSE 79; RESP 16; TEMP 35.7; O2SAT 92
[2023-07-19] MEDS: Atorvastatin Calcium 10 MG Tablet PO (20:06)
[2023-07-19] MEDS: Senna/Docusate Sodium 1 Tablet PO (20:06)
[2023-07-19] MEDS: MELATONIN 3 MG TABLET PO (20:06)
[2023-07-20] MEDS: DEXTROSE 5% IV ×3 (00:35→16:55)
[2023-07-20] MEDS: SMZ IV ×3 (00:35→16:55)
[2023-07-20] MEDS: TMP IV ×3 (00:35→16:55)
[2023-07-20] MEDS: 0.9% Saline Lock 10 ML Syringe IV ×3 (00:35→20:15)
[2023-07-20] MEDS: WATER IV ×3 (00:35→16:55)
[2023-07-20 05:52] LABS: Absolute Lymphocyte Count 2.48 X10^3/uL (0.83-4.51); Basophil# 0.12 X10^3/uL; Basophil% 1.7 % (0-1); Eosinophil# 0.18 X10^3/uL; Eosinophils% 2.6 % (0-5); Hematocrit 45.3 % (40-54); Hemoglobin 14.9 g/dL (13.0-16.5); Lymphocyte # 2.48 X10^3/ul (0.83-4.51); Lymphocyte % 35.6 % (19-41); Mean Corp Hgb Conc 32.9 g/dL (32-36); Mean Corpuscular Hgb 28.7 pg (27.0-32.0); Mean Corpuscular Volume 87.3 fL (80-94); Mean Platelet Vol. 8.9 fl (6.2-12.0); Monocyte# 1.18 X10^3/uL; Monocyte% 16.9 % (0-10); NRBC Flagged by Analyzer 0 % (0-5); Neutrophil # 2.98 X10^3/uL (2.7-7.7); Neutrophil % 42.8 % (47-70); Platelet Count 229 K/mm3 (150-450); RBC Distribution Width CV 15.1 % (11.6-14.6); RBC Distribution Width SD 46.3 fl (35.1-43.9); Red Blood Count 5.19 M/mm3 (4.6-6.2)
[2023-07-20] MEDS: Ceftriaxone 2 GM in 0.9% Normal Saline (50mL MB+) 50 ML IV ×2 (06:18→19:02)
[2023-07-20 06:53] LABS: AST(SGOT) 33 U/L (15-37); Alanine Aminotransfer ALT/SGPT 81 U/L (16-61); Albumin, Serum 3.3 g/dL (3.2-5.0); Alkaline Phosphatase 78 U/L (45-117); Anion Gap 8 (5-15); BUN 10 mg/dL (7-18); BUN/Creat Ratio 8.8 RATIO (10-20); CRP < 2.90 mg/L (0.0-3.0); Calcium,Total 8.6 mg/dL (8.5-10.1); Chloride 98 mmol/L (98-107); Creatinine, Serum 1.13 mg/dL (0.70-1.30); EST Glomerular Filtration Rate 69 mL/min (>60); Est Glom Filt Rate - Afr Amer 84 mL/min (>60); Estimated Creatinine Clearance 78.76 ml/min; Globulin 3.2 g/dL (2.2-4.2); Glucose 90 mg/dL (74-106); Potassium 4.2 mmol/L (3.5-5.1); Protein, Total 6.5 g/dL (6.4-8.2); Sodium Level 134 mmol/L (136-145)
[2023-07-20] MEDS: levETIRAcetam 500 MG Tablet PO ×2 (09:00→20:17)
[2023-07-20] MEDS: hydroCHLOROthiazide 12.5mg 12.5 MG PO (09:01)
[2023-07-20] MEDS: Lisinopril 10 MG Tablet PO (09:01)
[2023-07-20 09:11] LABS: Erythrocyte Sedimentation Rate 11 mm/hr (0-20)
[2023-07-20] MEDS: 0.9 % NaCl (Sterile) Posiflush 10 mL IV ×3 (09:11→19:02)
[2023-07-20 09:13] VITALS: BP 115/77; PULSE 80; RESP 16; TEMP 36.9; O2SAT 90
--- NOTE | 2023-07-20 11:51 | NURSING ---
Patient reports that he is leaving for an appointment tomorrow at 6am. Pharmacist was updated on appointment time as he is scheduled to have IV ATB. Pharmacist stated it was ok to give ceftriaxone early at 5am and Bactrim a little late if needed to accommodate appointment. Labs sent to Dr. Jasso per order
[2023-07-20 13:53] VITALS: BP 127/77; PULSE 87; RESP 18; TEMP 36.8; O2SAT 93
[2023-07-20] MEDS: 0.9% Normal Saline (250mL Bag) 250 ML 15 ML IV ×2 (16:56→19:03)
[2023-07-20] MEDS: Senna/Docusate Sodium 1 Tablet PO (20:17)
[2023-07-20] MEDS: MELATONIN 3 MG TABLET PO (20:18)
[2023-07-20] MEDS: Atorvastatin Calcium 10 MG Tablet PO (20:18)
[2023-07-21] MEDS: WATER IV ×3 (00:50→16:21)
[2023-07-21] MEDS: 0.9% Saline Lock 10 ML Syringe IV ×4 (00:50→05:26)
[2023-07-21] MEDS: SMZ IV ×3 (00:50→16:21)
[2023-07-21] MEDS: DEXTROSE 5% IV ×3 (00:50→16:21)
[2023-07-21] MEDS: TMP IV ×3 (00:50→16:21)
--- NOTE | 2023-07-21 01:30 | NURSING ---
Patient requests ceftriaxone infusion to be completed prior to 0530 this am due to spouse transporting patient at that time for appointment. This nurse spoke with pharmacist (Deangelo) regarding patient request, per pharmacist ok to administer IV ceftriaxone at 0430. Pharmacist states 0900 IV Bactrim will be administered upon return to unit from appointment.
[2023-07-21] MEDS: Ceftriaxone 2 GM in 0.9% Normal Saline (50mL MB+) 50 ML IV ×2 (04:35→18:08)
--- NOTE | 2023-07-21 05:29 | NURSING ---
Family presents to unit at this time to transport patient to appointment via car.
[2023-07-21 09:33] VITALS: BMI 29.0
[2023-07-21] MEDS: Lisinopril 10 MG Tablet PO (09:35)
[2023-07-21] MEDS: levETIRAcetam 500 MG Tablet PO ×2 (09:35→20:17)
[2023-07-21] MEDS: hydroCHLOROthiazide 12.5mg 12.5 MG PO (09:35)
[2023-07-21] MEDS: 0.9 % NaCl (Sterile) Posiflush 10 mL IV (09:36)
[2023-07-21] MEDS: 0.9% Normal Saline (250mL Bag) 250 ML 15 ML IV (18:08)
[2023-07-21 20:00] VITALS: PULSE 80; RESP 16; O2SAT 92
[2023-07-21] MEDS: Atorvastatin Calcium 10 MG Tablet PO (20:17)
[2023-07-21] MEDS: MELATONIN 3 MG TABLET PO (20:17)
[2023-07-21] MEDS: Senna/Docusate Sodium 1 Tablet PO (20:19)
[2023-07-22] MEDS: TMP IV ×3 (00:56→18:29)
[2023-07-22] MEDS: WATER IV ×3 (00:56→18:29)
[2023-07-22] MEDS: DEXTROSE 5% IV ×3 (00:56→18:29)
[2023-07-22] MEDS: SMZ IV ×3 (00:56→18:29)
--- NOTE | 2023-07-22 01:28 | NURSING ---
Contacted pharmacy regarding 9am dose of Bactrim for Thursday. Patient will be leaving unit around 9am for appt in [facility]. Will hold dose until patient gets back from appt. and will contact pharmacy for dose.
[2023-07-22] MEDS: Ceftriaxone 2 GM in 0.9% Normal Saline (50mL MB+) 50 ML IV ×2 (06:34→20:34)
[2023-07-22] MEDS: levETIRAcetam 500 MG Tablet PO ×2 (07:51→20:37)
[2023-07-22 07:52] VITALS: BP 132/84; PULSE 74; RESP 18
[2023-07-22] MEDS: Lisinopril 10 MG Tablet PO (07:56)
[2023-07-22] MEDS: hydroCHLOROthiazide 12.5mg 12.5 MG PO (07:56)
[2023-07-22 07:59] VITALS: RESP 18
[2023-07-22] MEDS: 0.9 % NaCl (Sterile) Posiflush 10 mL IV ×2 (12:41→18:28)
[2023-07-22] MEDS: 0.9% Saline Lock 10 ML Syringe IV ×2 (14:25→20:26)
[2023-07-22 16:00] VITALS: BP 127/85; PULSE 70; RESP 16; TEMP 36.6; O2SAT 94
[2023-07-22] MEDS: 0.9% Normal Saline (250mL Bag) 250 ML 15 ML IV (20:34)
[2023-07-22] MEDS: Senna/Docusate Sodium 1 Tablet PO (20:36)
[2023-07-22] MEDS: MELATONIN 3 MG TABLET PO (20:37)
[2023-07-22] MEDS: Atorvastatin Calcium 10 MG Tablet PO (20:37)
[2023-07-23] MEDS: 0.9% Saline Lock 10 ML Syringe IV ×2 (00:28→06:13)
[2023-07-23] MEDS: WATER IV ×3 (00:33→18:00)
[2023-07-23] MEDS: TMP IV ×3 (00:33→18:00)
[2023-07-23] MEDS: DEXTROSE 5% IV ×3 (00:33→18:00)
[2023-07-23] MEDS: SMZ IV ×3 (00:33→18:00)
[2023-07-23] MEDS: 0.9% Normal Saline (250mL Bag) 250 ML 15 ML IV (06:13)
[2023-07-23] MEDS: Ceftriaxone 2 GM in 0.9% Normal Saline (50mL MB+) 50 ML IV ×2 (06:14→20:07)
[2023-07-23] MEDS: Lisinopril 10 MG Tablet PO (09:35)
[2023-07-23] MEDS: hydroCHLOROthiazide 12.5mg 12.5 MG PO (09:35)
[2023-07-23] MEDS: levETIRAcetam 500 MG Tablet PO ×2 (09:35→20:08)
[2023-07-23] MEDS: 0.9 % NaCl (Sterile) Posiflush 10 mL IV ×2 (09:36→18:06)
[2023-07-23 09:47] VITALS: BP 127/84; PULSE 75
[2023-07-23 15:31] VITALS: BP 105/73; PULSE 76; RESP 16; TEMP 36.6; O2SAT 95
[2023-07-23 20:00] VITALS: RESP 16
[2023-07-23] MEDS: Senna/Docusate Sodium 1 Tablet PO (20:08)
[2023-07-23] MEDS: Atorvastatin Calcium 10 MG Tablet PO (20:08)
[2023-07-23] MEDS: MELATONIN 3 MG TABLET PO (20:08)
[2023-07-24] MEDS: TMP IV ×3 (01:23→17:42)
[2023-07-24] MEDS: DEXTROSE 5% IV ×3 (01:23→17:42)
[2023-07-24] MEDS: WATER IV ×3 (01:23→17:42)
[2023-07-24] MEDS: SMZ IV ×3 (01:23→17:42)
[2023-07-24] MEDS: Ceftriaxone 2 GM in 0.9% Normal Saline (50mL MB+) 50 ML IV ×2 (07:08→19:59)
[2023-07-24 07:35] VITALS: RESP 16
[2023-07-24 09:10] VITALS: BP 116/76
[2023-07-24] MEDS: 0.9% Normal Saline (250mL Bag) 250 ML 15 ML IV (09:24)
[2023-07-24] MEDS: levETIRAcetam 500 MG Tablet PO ×2 (09:41→20:01)
[2023-07-24] MEDS: hydroCHLOROthiazide 12.5mg 12.5 MG PO (09:42)
[2023-07-24] MEDS: Lisinopril 10 MG Tablet PO (09:42)
[2023-07-24 14:42] VITALS: BP 112/71; PULSE 72; RESP 16; TEMP 36.4; O2SAT 90
--- NOTE | 2023-07-24 15:07 | PN.TCU_ITS ---
Subjective Subjective Resident seen, examined for regulatory visit. Appreciate Dr. Tomlin's help. Resident doing well, walking, talking. 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 MRI of brain done at [facility] reviewed with resident. MRI brain shows blood where cavity exists after abscess evacuation. No intervention necessary. He has no other complaints. Objective Data Objective Data Vital Signs: Vital Signs Temp Pulse Resp BP Pulse Ox O2 Del Method 97.5 F L 72 16 112/71 90 Room Air 07/24/23 14:42 07/24/23 14:42 07/24/23 14:42 07/24/23 14:42 07/24/23 14:42 07/24/23 14:42 Oxygen Delivery Method Room Air Weight: 97.159 kg Body Mass Index (BMI) 29.0 Intake & Output: Intake and Output for Last 24 Hours 07/22/23 07/23/23 07/24/23 23:59 23:59 23:59 Intake Total 2750 / 2750 3134.75 / 3134.75 1810 / 1810 Balance 2750 / 2750 3134.75 / 3134.75 1810 / 1810 Lab / Micro Data Attestation: I reviewed the patient's lab results. 07/20/23 05:31 07/20/23 05:31 Physical Exam Const alert General Appearance: cooperative HEENT normocephalic HEENT Narrative: Lateral incision crown of head clean, dry, intact. Eyes PERRL and EOMs intact bilaterally Neck supple, no JVD and no carotid bruits Resp normal respiratory effort, normal air movement and clear to auscultation bilaterally Cardio regular rate and regular rhythm GI normal to inspection, nondistended, normoactive bowel sounds, non-tender and non-distended Extremity normal capillary refill Extremity Narrative: RUE PICC line. 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 * Debility - PT/OT. * Pain - Tylenol 1000mg q6 prn pain (1-10). * Bowel - senna/colace 1 tablet bid prn, Magnesium citrate 300ml daily prn. * Adult immunization - Administer pneumonia vaccine, covid vaccine, flu vaccine as appropriate.. * DVT prophylaxis - Moving well, not necessary. * Brain abscess s/p removal - Ceftriaxone 2gm iv q12 thru 08/06/2023, Bactrim 320mg iv tid thru 08/06/2023, Appreciate Dr. Tomlin's help. * Hyperlipidemia - Atorvastatin 10mg qhs. * Hypertension - Lisinopril 10mg daily, HCTZ 12.5mg daily. * Seizure prophylaxis - Keppra 500mg bid. * Insomnia - Melatonin 3mg qhs.
[2023-07-24] MEDS: Senna/Docusate Sodium 1 Tablet PO (20:00)
[2023-07-24] MEDS: MELATONIN 3 MG TABLET PO (20:01)
[2023-07-24] MEDS: Atorvastatin Calcium 10 MG Tablet PO (20:01)
[2023-07-25] MEDS: SMZ IV ×3 (01:05→16:47)
[2023-07-25] MEDS: DEXTROSE 5% IV ×3 (01:05→16:47)
[2023-07-25] MEDS: TMP IV ×3 (01:05→16:47)
[2023-07-25] MEDS: WATER IV ×3 (01:05→16:47)
[2023-07-25] MEDS: Ceftriaxone 2 GM in 0.9% Normal Saline (50mL MB+) 50 ML IV ×2 (07:04→18:49)
[2023-07-25] MEDS: hydroCHLOROthiazide 12.5mg 12.5 MG PO (09:40)
[2023-07-25] MEDS: levETIRAcetam 500 MG Tablet PO ×2 (09:40→20:08)
[2023-07-25] MEDS: Lisinopril 10 MG Tablet PO (09:41)
[2023-07-25 16:00] VITALS: BP 122/88; PULSE 89; RESP 16; TEMP 36.4; O2SAT 97
--- NOTE | 2023-07-25 16:06 | NURSING ---
Pt. left floor at 1238 to go watch a basketball game returned to floor at 1604.
[2023-07-25] MEDS: Atorvastatin Calcium 10 MG Tablet PO (20:08)
[2023-07-25] MEDS: MELATONIN 3 MG TABLET PO (20:08)
[2023-07-25] MEDS: Senna/Docusate Sodium 1 Tablet PO (20:11)
[2023-07-26] MEDS: DEXTROSE 5% IV ×3 (00:29→16:47)
[2023-07-26] MEDS: WATER IV ×3 (00:29→16:47)
[2023-07-26] MEDS: SMZ IV ×3 (00:29→16:47)
[2023-07-26] MEDS: TMP IV ×3 (00:29→16:47)
[2023-07-26] MEDS: Ceftriaxone 2 GM in 0.9% Normal Saline (50mL MB+) 50 ML IV ×2 (06:31→18:36)
[2023-07-26 09:24] VITALS: BP 117/75; PULSE 71; RESP 16; TEMP 36.7; O2SAT 93
[2023-07-26] MEDS: 0.9% Normal Saline (250mL Bag) 250 ML 15 ML IV (09:30)
[2023-07-26] MEDS: 0.9 % NaCl (Sterile) Posiflush 10 mL IV ×2 (09:31→16:48)
[2023-07-26] MEDS: levETIRAcetam 500 MG Tablet PO ×2 (09:33→20:27)
[2023-07-26] MEDS: hydroCHLOROthiazide 12.5mg 12.5 MG PO (09:33)
[2023-07-26] MEDS: Lisinopril 10 MG Tablet PO (09:33)
[2023-07-26] MEDS: 0.9% Saline Lock 10 ML Syringe IV (20:23)
[2023-07-26] MEDS: Senna/Docusate Sodium 1 Tablet PO (20:27)
[2023-07-26] MEDS: Atorvastatin Calcium 10 MG Tablet PO (20:28)
[2023-07-26] MEDS: MELATONIN 3 MG TABLET PO (20:28)
[2023-07-27] MEDS: TMP IV ×3 (00:27→16:50)
[2023-07-27] MEDS: WATER IV ×3 (00:27→16:50)
[2023-07-27] MEDS: DEXTROSE 5% IV ×3 (00:27→16:50)
[2023-07-27] MEDS: SMZ IV ×3 (00:27→16:50)
[2023-07-27] MEDS: 0.9% Saline Lock 10 ML Syringe IV ×4 (00:27→09:09)
[2023-07-27 05:44] LABS: Absolute Lymphocyte Count 2.51 X10^3/uL (0.83-4.51); Absolute Neutrophil Count 2.8 X10^3/uL (2.0-7.7); Basophil% 1.4 % (0-1); Eosinophil# 0.31 X10^3/uL; Eosinophils% 4.5 % (0-5); Hematocrit 43.9 % (40-54); Hemoglobin 14.3 g/dL (13.0-16.5); Lymphocyte # 2.51 X10^3/ul (0.83-4.51); Lymphocyte % 36.4 % (19-41); Mean Corp Hgb Conc 32.6 g/dL (32-36); Mean Corpuscular Hgb 28.4 pg (27.0-32.0); Mean Corpuscular Volume 87.3 fL (80-94); Mean Platelet Vol. 8.9 fl (6.2-12.0); Monocyte# 1.15 X10^3/uL; Monocyte% 16.7 % (0-10); NRBC Flagged by Analyzer 0 % (0-5); Neutrophil # 2.79 X10^3/uL (2.7-7.7); Neutrophil % 40.4 % (47-70); Platelet Count 214 K/mm3 (150-450); RBC Distribution Width CV 15.8 % (11.6-14.6); RBC Distribution Width SD 48.1 fl (35.1-43.9); Red Blood Count 5.03 M/mm3 (4.6-6.2); White Blood Count 6.9 K/mm3 (4.4-11.0)
[2023-07-27 06:07] LABS: Erythrocyte Sedimentation Rate 4 mm/hr (0-20)
[2023-07-27 06:12] LABS: ALB/GLOB Ratio 1.1 RATIO (0.9-2.4); AST(SGOT) 31 U/L (15-37); Alanine Aminotransfer ALT/SGPT 75 U/L (16-61); Albumin, Serum 3.3 g/dL (3.2-5.0); Alkaline Phosphatase 65 U/L (45-117); Anion Gap 6 (5-15); BUN 10 mg/dL (7-18); BUN/Creat Ratio 9.3 RATIO (10-20); CRP < 2.90 mg/L (0.0-3.0); Calcium,Total 8.7 mg/dL (8.5-10.1); Chloride 98 mmol/L (98-107); Creatinine, Serum 1.07 mg/dL (0.70-1.30); EST Glomerular Filtration Rate 74 mL/min (>60); Est Glom Filt Rate - Afr Amer 89 mL/min (>60); Estimated Creatinine Clearance 84.27 ml/min; Globulin 3.1 g/dL (2.2-4.2); Glucose 88 mg/dL (74-106); Potassium 4.1 mmol/L (3.5-5.1); Protein, Total 6.4 g/dL (6.4-8.2); Sodium Level 134 mmol/L (136-145)
--- NOTE | 2023-07-27 06:33 | NURSING ---
Labs faxed to Dr. Barboza per order
[2023-07-27] MEDS: 0.9% Normal Saline (250mL Bag) 250 ML 15 ML IV (06:44)
[2023-07-27] MEDS: Ceftriaxone 2 GM in 0.9% Normal Saline (50mL MB+) 50 ML IV ×2 (06:44→18:50)
[2023-07-27 09:03] VITALS: BP 108/76; PULSE 73; RESP 16; TEMP 37.2; O2SAT 91
[2023-07-27] MEDS: Lisinopril 10 MG Tablet PO (09:08)
[2023-07-27] MEDS: levETIRAcetam 500 MG Tablet PO ×2 (09:08→20:07)
[2023-07-27] MEDS: hydroCHLOROthiazide 12.5mg 12.5 MG PO (09:08)
--- NOTE | 2023-07-27 16:11 | PCM.PN.ID ---
Physical Exam Narrative Feeling better, no fever, no headache. Const alert and no apparent distress Resp normal air movement and clear to auscultation bilaterally Cardio regular rate and regular rhythm GI soft to palpation, non-tender and non-distended Skin no rashes or lesions noted ID ID: Route of nutrition/ use of supplements: [] Nutritional Intake: [] IV Site: [] Malone Catheter: [] Assessment & Plan Assessment/Plan (1) Nocardia infection: PLAN: His Nocardia is S to augmentin, ceftriaxone, amikacin, tobra, minocycline, bactrim, and linezolid. Narrowed abx to ceftriaxone 2gm q12h and IV bactrim. Completed 3 weeks amikacin. Plan is for 6 weeks total of IV abx then long duration of po treatment. Stop date of IV ceftriaxone/bactrim will be 08/06/23. Brain MRI done, reviewed report. Will follow (2) Brain abscess:
[2023-07-27] MEDS: 0.9 % NaCl (Sterile) Posiflush 10 mL IV (16:51)
[2023-07-27] MEDS: Senna/Docusate Sodium 1 Tablet PO (20:07)
[2023-07-27] MEDS: MELATONIN 3 MG TABLET PO (20:07)
[2023-07-27] MEDS: Atorvastatin Calcium 10 MG Tablet PO (20:07)
[2023-07-27] MEDS: Acetaminophen 500 MG Tablet 1000 MG PO (20:08)
[2023-07-28] MEDS: 0.9 % NaCl (Sterile) Posiflush 10 mL IV (01:22)
[2023-07-28] MEDS: WATER IV ×3 (01:22→18:37)
[2023-07-28] MEDS: TMP IV ×3 (01:22→18:37)
[2023-07-28] MEDS: DEXTROSE 5% IV ×3 (01:22→18:37)
[2023-07-28] MEDS: SMZ IV ×3 (01:22→18:37)
[2023-07-28] MEDS: Ceftriaxone 2 GM in 0.9% Normal Saline (50mL MB+) 50 ML IV ×2 (06:57→20:44)
[2023-07-28] MEDS: 0.9% Normal Saline (250mL Bag) 250 ML 15 ML IV ×2 (06:58→20:46)
[2023-07-28 09:13] VITALS: BP 117/70; PULSE 71; RESP 18; TEMP 36.7; O2SAT 95
[2023-07-28] MEDS: 0.9% Saline Lock 10 ML Syringe IV ×3 (09:19→20:44)
[2023-07-28] MEDS: Lisinopril 10 MG Tablet PO (09:23)
[2023-07-28] MEDS: hydroCHLOROthiazide 12.5mg 12.5 MG PO (09:23)
[2023-07-28] MEDS: levETIRAcetam 500 MG Tablet PO ×2 (09:23→20:43)
[2023-07-28 11:30] VITALS: BMI 29.1
[2023-07-28 11:49] VITALS: PULSE 72; RESP 16; O2SAT 94
--- NOTE | 2023-07-28 15:00 | NURSING ---
pt off unit to appt in [facility]
--- NOTE | 2023-07-28 20:19 | NURSING ---
Addendum entered by Yakelin Ramirez 07/29/23 00:48: [facility] returned phone call, no PICC information received other than day it was placed. This nurse tried calling [facility] which is where patient reports PICC was inserted. Voicemail left to return call to TCU nursing station. Original Note: Spoke with nurse on Rehab unit at [facility] regarding information on patient's PICC catheter length to be able to remove tomorrow prior to his discharge. Nurse reported to follow up and return call to TCU if information can be received.
[2023-07-28] MEDS: Senna/Docusate Sodium 1 Tablet PO (20:42)
[2023-07-28] MEDS: MELATONIN 3 MG TABLET PO (20:43)
[2023-07-28] MEDS: Atorvastatin Calcium 10 MG Tablet PO (20:43)
--- NOTE | 2023-07-29 07:33 | DS.PCM_ITS ---
Providers Date of Admission: 07/03/23 Consultations 07/03/23 23:02 Consult: Infectious Disease Routine Consulting Provider: Perez Tomlin Reason for Consult: Brain abscess s/p removal, source unknown. 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 * Debility - PT/OT. * Pain - Tylenol 1000mg q6 prn pain (1-10). * Bowel - senna/colace 1 tablet bid prn, Magnesium citrate 300ml daily prn. * Adult immunization - Administer pneumonia vaccine, covid vaccine, flu vaccine as appropriate.. * DVT prophylaxis - Moving well, not necessary. * Brain abscess s/p removal - Ceftriaxone 2gm iv q12 thru 08/06/2023, Bactrim 320m g iv tid thru 08/06/2023, Appreciate Dr. Tomlin's help. * Hyperlipidemia - Atorvastatin 10mg qhs. * Hypertension - Lisinopril 10mg daily, HCTZ 12.5mg daily. * Seizure prophylaxis - Keppra 500mg bid. * Insomnia - Melatonin 3mg qhs. 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 Discharge home with 07/29/2023, no needs. Rx Bactrim DS 1 tablet bid x 6 weeks. Rx Augmentin 875mg bid x 6 weeks. F/u infectious disease. Physical Exam Const alert General Appearance: cooperative HEENT normocephalic Eyes PERRL and EOMs intact bilaterally Neck supple, no JVD and no carotid bruits Resp normal respiratory effort, normal air movement and clear to auscultation bilaterally Cardio regular rate and regular rhythm GI normal to inspection, nondistended, normoactive bowel sounds, non-tender and non-distended Extremity normal capillary refill General Extremity: Negative for edema Skin no rashes or lesions noted General Skin Exam: no breakdown Psych affect normal Appearance: appropriate Weight / BMI Weight Weight: 97.568 kg Body Mass Index (BMI) 29.1 ABG / Lab / Microbiology Data 07/27/23 05:21 07/27/23 05:21 D/C Instructions Discharge Diet: No restrictions Discharge Activity: Return to Normal Activity and May Shower Weight Bearing Status: Weight bearing as tolerated Call your doctor if you observe: Fever of 101 or Higher, Inability to urinate, Inability to have a bowel movement, Shortness of breath, Dizziness, Fainting spells, Swelling in the ankles, Chest pain and Uncontrolled pain Additional Instructions: Discharge home with 07/29/2023, no needs. Rx Bactrim DS 1 tablet bid x 6 weeks. Rx Augmentin 875mg bid x 6 weeks. F/u infectious disease. Please Follow Up With: Dr. Jasso When: 3 weeks. Meaningful Use Info Meaningful Use Diagnoses (Choose all that apply): None applicable Discharge Plan Admission Admit Date/Time: 07/03/23 16:36 Primary Reason for Your Visit: Debility. Attending Provider: Jose De Jesus Donnelly Chi Consulting Providers: Perez Tomlin Instructions Additional Instructions / Restrictions: Discharge home with 07/29/2023, no needs. Rx Bactrim DS 1 tablet bid x 6 weeks. Rx Augmentin 875mg bid x 6 weeks. F/u infectious disease. Discharge Orders/Prescriptions Prescriptions: New levetiracetam 500 mg Tablet 500 mg PO BID@0800,2000 30 Days Qty: 60 0RF Continued atorvastatin 10 mg tablet 10 mg PO QHS lisinopril-hydrochlorothiazide 10-12.5 mg tablet 1 tab PO DAILY Discontinued acetaminophen 325 mg tablet 650 mg PO Q6H PRN (Reason: pain) amikacin 500 mg/2 mL solution 600 mg IV Q12H Rx Instructions: NOT COMPATIBLE WITH BACTRIM imipenem-cilastatin 500 mg recon soln See Rx Instructions IV 4X/DAY Rx Instructions: 500 mg intravenously 4 times daily; levetiracetam [Keppra] 500 mg tablet 500 mg PO BID melatonin 3 mg tablet 3 mg PO QHS sennosides 8.6 mg tablet 17.2 mg PO DAILY PRN (Reason: constipation) sulfamethoxazole-trimethoprim 400-80 mg/5 mL solution See Rx Instructions IV TID Patient Comments: NOT COMPATIBLE WITH PRIMAXIN Rx Instructions: 320 mg intravenously three times a day Disposition Disposition (needs filled in before D/C Order can be placed): Home, Self Care
[2023-07-29 07:37] VITALS: BP 116/69; PULSE 77; RESP 16; TEMP 36.9; O2SAT 93
[2023-07-29 07:43] VITALS: RESP 15
[2023-07-29] MEDS: Amox/Clavulanate 500 MG Tablet PO (08:10)
[2023-07-29] MEDS: Smz/Tmp Ds Tablet 1 TABLET PO (08:10)
[2023-07-29] MEDS: levETIRAcetam 500 MG Tablet PO (08:11)
[2023-07-29] MEDS: hydroCHLOROthiazide 12.5mg 12.5 MG PO (08:11)
[2023-07-29] MEDS: Lisinopril 10 MG Tablet PO (08:11)
--- NOTE | 2023-07-29 08:45 | CASEMGMT ---
Social Work SW notified by nursing 07/27 at 1900 that pt returned from ID Dr [place] and was switched from IV ATB to PO ATB and cleared for DC 07/28. Dr. Donnelly agreed to DC 07/28 as well. IDT updated. BIMS () and PHQ-2 () completed for MDS assessment. Yulia Kyle, SALES AND MANAGEMENT TRAINEE POLICE INSPECTOR
--- NOTE | 2023-07-29 11:59 | NURSING ---
[facility] medical records contacted regarding PICC placement and length. Able to verbalize length and to fax form over with information.
== END 2023-07-29 11:30 | disposition home or self-care (01) | DRG 867 ==
PROVIDERS: Internal Medicine Infectious Disease; Admitting Provider Family Medicine Geriatric Medicine; Referring Provider Family Medicine Geriatric Medicine; Visit Provider Family Medicine Geriatric Medicine
DX: A43.9 Nocardiosis, unspecified (principal); G06.0 Intracranial abscess and granuloma; I10 Essential (primary) hypertension; E78.5 Hyperlipidemia, unspecified; G47.30 Sleep apnea, unspecified; Z79.899 Other long term (current) drug therapy; G47.00 Insomnia, unspecified
CPT/HCPCS: 36415; 80048; 80053; 85025; 85652; 86140; 97110; 97116; 97162; 97165; 97530; 97535; 97802; J7050; A4216; J0278

== ENCOUNTER 2023-10-07 14:11 | Outpatient (CLI) | payer OTHER, SELFPAY ==
--- NOTE | 2023-10-07 14:16 | VDLE_ITS ---
Reason For Study: Left leg edema RIGHT LEFT CFV is compressible, spontaneous, phasic, GSV is normal. competent and demonstrates normal CFV is compressible, spontaneous, phasic, augmentation. competent, and demonstrates normal Procedure augmentation. This is a venous duplex using B-mode, color FV is compressible, spontaneous, phasic, flow and spectral Doppler. competent and demonstrates normal Exam performed in department. augmentation. A preliminary report was called and/or faxed POP V is compressible, spontaneous, phasic, to Dr. Gallegos. competent and demonstrates normal augmentation. T/P Trunk is compressible. PTV is compressible. LT PerV is compressible. VL/Venous Duplex US, Unilateral Interpretation Summary Deep veins of the left lower extremity are patent and compressible segmentally. There is no evidence of left lower extremity deep vein thrombosis. Valvular competence appears intac t within the proximal deep venous system on the left . The left great saphenous vein appears patent a nd compressible segmentally. The right common femoral vein is patent and compressible . Ordering Physician: Prasad Gallegos Referring Physician: Prasad Gallegos Performed By: Yakelin Rosario RVT
== END 2023-10-07 23:59 | disposition home or self-care (01) ==
PROVIDERS: PCP Family Medicine; Referring Provider Family Medicine; Visit Provider Family Medicine
DX: R60.0 Localized edema (principal)
CPT/HCPCS: 93971